=== PATIENT | female | born 1970 | race Caucasian/White ===

== ENCOUNTER 2025-04-29 09:18 | Day surgery (SDC) | payer BC ==
[2025-04-29] MEDS ORDERED: Propofol 500 MG/50 ML SDV ONE (11:30)
== END 2025-04-29 13:05 | disposition home or self-care (01) ==
LOC: LB.SDS 09:18
PROVIDERS: ATTEND Surgery
DX: K22.70 Barrett's esophagus without dysplasia (principal); K21.00 Gastro-esophageal reflux disease with esophagitis, without bleeding; K22.2 Esophageal obstruction; I10 Essential (primary) hypertension
CPT/HCPCS: 43202; J2704; J7030